=== PATIENT | male | born 1940 | race American Indian/Alaskan Native ===

== ENCOUNTER 2019-01-15 10:13 | Inpatient (IN) | payer MEDICARE ==
--- NOTE | 2019-01-15 11:20 | XRay Report ---
AP CHEST: HISTORY: Shortness of breath AP view of the chest demonstrates a normal mediastinal and cardiac contour with clear lungs and normal bony and soft tissue structures. IMPRESSION: No acute cardiopulmonary process identified.
[2019-01-15] MEDS ORDERED: ZOFRAN IV PRN (11:30)
[2019-01-15] MEDS ORDERED: TYLENOL PO PRN (11:30)
[2019-01-15 11:38] LABS: Basophils % (Auto) 0.7 % (0.0-1.8); Eosinophils # (Auto) 0.2 K/mm3 (0.0-0.4); Eosinophils % (Auto) 5.7 % (0.0-4.3); Hematocrit 43.4 % (35.5-45.6); Hemoglobin 14.9 gm/dl (11.8-15.2); Lymphocytes # (Auto) 1.5 K/mm3 (1.2-5.4); Lymphocytes % (Auto) 34.6 % (13.4-35.0); Mean Corpuscular HGB Conc 34 % (32-34); Mean Corpuscular Volume 90 fl (84-94); Monocytes # (Auto) 0.4 K/mm3 (0.0-0.8); Platelet Count 172 K/mm3 (140-440); Red Blood Count 4.82 M/mm3 (3.65-5.03); Red Cell Distribution Width 14.2 % (13.2-15.2)
[2019-01-15 11:47] LABS: INR 0.97 (0.87-1.13)
[2019-01-15 11:56] LABS: BUN/Creatinine Ratio 13; Blood Urea Nitrogen 17 mg/dL (9-20); Calcium 9.3 mg/dL (8.4-10.2); Hemolysis Index 14
--- NOTE | 2019-01-15 14:19 | History and Physical Report ---
Addendum entered and electronically signed by HENRY CROW MD 01/15/19 18:20: Episodes of recurrent near syncope ECG showing trifascicular block however no evidence of bradyarrhythmias on holter monitor NSVT with frequent PVCs on outpatient holter monitor (~9% of all beats) History of coronary artery disease s/p PCI Normal LVEF and normal MPI recently Discussed with primary flake drier Plan is to observe on and rule out bradyarrhythmias in setting of trifascicular block and consider cardiac cath on friday for NSVT and frequent PVCs Original Note: History of Present Illness Date of examination: 01/15/19 Date of admission: 01/15/19 10:45 History of present illness: Please refer to H&P obtained from the office. Medications and Allergies Allergies Allergy/AdvReac Type Severity Reaction Status Date / Time No Known Allergies Allergy Verified 06/23/14 06:54 Home Medications Medication Instructions Recorded Confirmed Last Taken Type Amlodipine Besylate 5 mg PO QDAY 06/23/14 06/23/14 06/22/14 History Aspirin EC [Halfprin EC] 81 mg PO QDAY 06/23/14 06/23/14 06/21/14 History Cholecalciferol Vit D3 [Vitamin D3] 1,000 unit PO QDAY 06/23/14 06/23/14 06/22/14 History Oxybutynin [Ditropan] 5 mg PO QDAY 06/23/14 06/23/14 06/22/14 History Simvastatin 20 mg PO HS 06/23/14 06/23/14 06/22/14 History Spironolactone [Aldactone] 50 mg PO BID 06/23/14 06/23/14 06/22/14 History Tadalafil [Cialis] 5 mg PO PRN PRN 06/23/14 06/23/14 05/23/14 History Active Meds: Active Medications Acetaminophen (Tylenol) 650 mg PO Q4H PRN PRN Reason: Pain MILD(1-3)/Fever >100.5/BARKER Enoxaparin Sodium (Lovenox) 30 mg SUB-Q QDAY REEMA Ondansetron HCl (Zofran) 4 mg IV Q8H PRN PRN Reason: Nausea And Vomiting Sodium Chloride (Sodium Chloride Flush Syringe 10 Ml) 10 ml IV PRN PRN PRN Reason: LINE FLUSH Physical Examination Vital Signs Temp Resp BP 97.6 F 18 124/98 01/15/19 11:29 01/15/19 11:29 01/15/19 11:29 General appearance: no acute distress HEENT: Positive: PERRL Cardiac: Positive: Reg Rate and Rhythm Lungs: Positive: Decreased Breath Sounds Neuro: Positive: Grossly Intact Results 01/15/19 11:14 01/15/19 11:14 Coagulation 01/15/19 Range/Units 11:14 PT 13.5 (12.2-14.9) Sec. INR 0.97 (0.87-1.13) CBC 01/15/19 Range/Units 11:14 WBC 4.3 L (4.5-11.0) K/mm3 RBC 4.82 (3.65-5.03) M/mm3 Hgb 14.9 (11.8-15.2) gm/dl Hct 43.4 (35.5-45.6) % Plt Count 172 (140-440) K/mm3 Lymph # 1.5 (1.2-5.4) K/mm3 [place] # 0.4 (0.0-0.8) K/mm3 Eos # 0.2 (0.0-0.4) K/mm3 Baso # 0.0 (0.0-0.1) K/mm3 Comprehensive Metabolic Panel 01/15/19 Range/Units 11:14 Sodium 139 (137-145) mmol/L Potassium 3.8 (3.6-5.0) mmol/L Chloride 101.2 (98-107) mmol/L Carbon Dioxide 28 (22-30) mmol/L BUN 17 (9-20) mg/dL Creatinine 1.3 (0.8-1.5) mg/dL Glucose 85 (75-100) mg/dL Calcium 9.3 (8.4-10.2) mg/dL Assessment and Plan Paroxysmal NSVT treadmill stress test 01/14 showed SVT which resolved spontaneously. However, nuclear was negative for ischemia. normal LVEF by recent echo at [facility]. no significant stenosis by recent carotid u/s. holter showed moderate PVCs with runs of nonsustained VT. ECG today is sinus rhythm with bifascicular block. hospitalized at [facility] 2-3 weeks ago with syncope. Hypertension Remote history of CAD Hx of Prostate CA Plan: Admit for observation. Telemetry monitoring, labs, CXR Beta blockers for suppression of paroxysmal SVT.
[2019-01-15] MEDS: LOPRESSOR PO SCH ×3 (17:11→23:33)
[2019-01-16] MEDS: LOPRESSOR PO SCH ×4 (05:55→23:31)
[2019-01-16 06:44] LABS: BUN/Creatinine Ratio 13; Blood Urea Nitrogen 16 mg/dL (9-20); Hemolysis Index 4
--- NOTE | 2019-01-16 09:18 | Progress Note ---
Assessment and Plan - Patient Problems (1) Abnormal stress test Current Visit: Yes Status: Acute Plan to address problem: Patient is awaiting cardiac catheterization scheduled for Friday morning. Subjective Date of service: 01/16/19 Interval history: Patient is comfortable, no chest pain, no shortness of breath, no cardiac complaints. Heart rate is 68, sinus rhythm, blood pressure 129/97. Objective Vital Signs Temp Pulse Resp BP Pulse Ox 01/16/19 08:38 68 20 129/97 100 01/16/19 08:37 98.2 F 01/16/19 08:23 20 01/16/19 04:50 98.3 F 71 18 142/108 98 01/15/19 23:39 98.3 F 69 16 131/97 97 01/15/19 23:33 80 01/15/19 20:42 22 01/15/19 19:52 97.7 F 73 16 123/87 98 01/15/19 16:26 97.9 F 18 142/100 01/15/19 11:29 97.6 F 18 124/98 01/15/19 10:58 81 - Physical Examination General: Appears Well, No Apparent Distress HEENT: Positive: PERRL Neck: Positive: neck supple Cardiac: Positive: Reg Rate and Rhythm Lungs: Positive: clear to auscultation Neuro: Positive: Grossly Intact Abdomen: Positive: Soft Skin: Positive: Clear Extremities: Absent: edema - Labs and Meds Coagulation 01/15/19 Range/Units 11:14 PT 13.5 (12.2-14.9) Sec. INR 0.97 (0.87-1.13) CBC 01/15/19 Range/Units 11:14 WBC 4.3 L (4.5-11.0) K/mm3 RBC 4.82 (3.65-5.03) M/mm3 Hgb 14.9 (11.8-15.2) gm/dl Hct 43.4 (35.5-45.6) % Plt Count 172 (140-440) K/mm3 Lymph # 1.5 (1.2-5.4) K/mm3 [place] # 0.4 (0.0-0.8) K/mm3 Eos # 0.2 (0.0-0.4) K/mm3 Baso # 0.0 (0.0-0.1) K/mm3 Comprehensive Metabolic Panel 01/15/19 01/16/19 Range/Units 11:14 05:39 Sodium 139 141 (137-145) mmol/L Potassium 3.8 3.4 L (3.6-5.0) mmol/L Chloride 101.2 103.2 (98-107) mmol/L Carbon Dioxide 28 26 (22-30) mmol/L BUN 17 16 (9-20) mg/dL Creatinine 1.3 1.2 (0.8-1.5) mg/dL Glucose 85 86 (75-100) mg/dL Calcium 9.3 9.0 (8.4-10.2) mg/dL
[2019-01-16] MEDS: DITROPAN PO SCH (09:39)
[2019-01-16] MEDS: NORVASC PO SCH (09:39)
[2019-01-16] MEDS: FLOMAX PO SCH (09:39)
[2019-01-16] MEDS: LOVENOX SUB-Q SCH (09:40)
[2019-01-16] MEDS: HALFPRIN EC PO SCH (09:40)
[2019-01-16] MEDS: LEXAPRO PO SCH (09:55)
[2019-01-16] MEDS ORDERED: LOVENOX SUB-Q SCH (10:00)
[2019-01-16] MEDS: SODIUM CHLORIDE FLUSH SYRINGE 10 ML IV PRN (21:15)
[2019-01-17] MEDS: LOPRESSOR PO SCH ×4 (06:00→23:41)
[2019-01-17 06:04] LABS: BUN/Creatinine Ratio 15; Blood Urea Nitrogen 20 mg/dL (9-20); Calcium 8.6 mg/dL (8.4-10.2); Hemolysis Index 9
[2019-01-17] MEDS: DITROPAN PO SCH (10:04)
[2019-01-17] MEDS: NORVASC PO SCH (10:04)
[2019-01-17] MEDS: LEXAPRO PO SCH (10:04)
[2019-01-17] MEDS: LOVENOX SUB-Q SCH (10:04)
[2019-01-17] MEDS: FLOMAX PO SCH (10:04)
[2019-01-17] MEDS: HALFPRIN EC PO SCH (10:04)
--- NOTE | 2019-01-17 10:23 | Progress Note ---
Assessment and Plan - Patient Problems (1) Abnormal stress test Current Visit: Yes Status: Acute Plan to address problem: Patient is awaiting cardiac catheterization scheduled for tomorrow morning. Subjective Date of service: 01/17/19 Interval history: Patient is comfortable, no acute distress, awaiting cardiac catheterization which is scheduled for tomorrow morning. Objective Vital Signs Temp Pulse Resp BP Pulse Ox 01/17/19 09:36 98.1 F 01/17/19 09:35 61 18 125/90 99 01/17/19 06:00 60 125/73 01/17/19 04:22 98.3 F 60 17 125/73 99 01/17/19 00:18 98.2 F 63 17 135/89 98 01/16/19 23:31 70 133/95 01/16/19 22:00 75 20 01/16/19 20:55 98.9 F 70 18 133/95 99 01/16/19 16:06 71 18 112/84 97 01/16/19 16:05 98.0 F 01/16/19 11:41 98.0 F 70 18 124/88 100 - Physical Examination General: Appears Well, No Apparent Distress HEENT: Positive: PERRL Neck: Positive: neck supple Cardiac: Positive: Reg Rate and Rhythm Lungs: Positive: clear to auscultation Neuro: Positive: Grossly Intact Abdomen: Positive: Soft Skin: Positive: Clear Extremities: Absent: edema - Labs and Meds Comprehensive Metabolic Panel 01/17/19 Range/Units 05:03 Sodium 138 (137-145) mmol/L Potassium 3.2 L (3.6-5.0) mmol/L Chloride 101.5 (98-107) mmol/L Carbon Dioxide 26 (22-30) mmol/L BUN 20 (9-20) mg/dL Creatinine 1.3 (0.8-1.5) mg/dL Glucose 91 (75-100) mg/dL Calcium 8.6 (8.4-10.2) mg/dL
[2019-01-17] MEDS: SODIUM CHLORIDE FLUSH SYRINGE 10 ML IV PRN (21:09)
[2019-01-18] MEDS: LOPRESSOR PO SCH ×2 (05:15→16:42)
[2019-01-18 05:40] LABS: Hematocrit 41.1 % (35.5-45.6); Hemoglobin 14.2 gm/dl (11.8-15.2); INR 1.04 (0.87-1.13); Mean Corpuscular HGB Conc 35 % (32-34); Mean Corpuscular Volume 90 fl (84-94); Platelet Count 156 K/mm3 (140-440); Red Blood Count 4.57 M/mm3 (3.65-5.03); Red Cell Distribution Width 13.8 % (13.2-15.2)
[2019-01-18 05:59] LABS: Calcium 8.8 mg/dL (8.4-10.2)
[2019-01-18] MEDS ORDERED: HALFPRIN EC PO ONE (07:49)
[2019-01-18] MEDS: HALFPRIN EC PO SCH ×2 (07:51→16:41)
[2019-01-18] MEDS ORDERED: NACL 0.9% 500 ML 500 ML IV SCH (08:00)
[2019-01-18] MEDS: XYLOCAINE 2% INFILTRATI ONE ×3 (10:15→10:43)
[2019-01-18] MEDS: SUBLIMAZE ONE ×2 (10:15→10:30)
[2019-01-18] MEDS: VERSED ONE ×2 (10:15→10:30)
[2019-01-18] MEDS: CALAN ONE ×2 (10:16→10:32)
[2019-01-18] MEDS: HEPARIN 10,000 UNITS/10 ML ONE ×2 (10:16→10:32)
[2019-01-18] MEDS: NACL 0.9% 500 ML 0 ML ONE ×2 (10:17→10:25)
[2019-01-18] MEDS: HEPARIN/NS 5000 UNIT/500ML(CATH LAB) 1,000 ML IR ONE ×2 (10:17→10:25)
[2019-01-18] MEDS: NITROGLYCERIN SYRINGE 3 ML ONE ×2 (10:18→10:32)
[2019-01-18] MEDS ORDERED: ATROPINE 0.1% (CARDIAC) ONE (10:24)
[2019-01-18] MEDS ORDERED: ADRENALIN ONE (10:27)
--- NOTE | 2019-01-18 11:18 | Cardiac Catherization Report ---
REASON FOR PROCEDURE: The patient is a 78-year-old man, who presented to the hospital following an abnormal stress test, recommended for cardiac catheterization. PROCEDURES: 1. Left heart catheterization. 2. Selective left and right coronary angiography. 3. Left ventricular catheterization and angiography. 4. Sedation time start 10:30, and end 10:54. DESCRIPTION OF PROCEDURE: The patient was prepped and draped in a sterile fashion after informed consent. An initial attempt at retrograde catheterization via the right radial artery was unsuccessful due to severe tortuosity in the neck and brachiocephalic artery. We then turned our attention to the right femoral artery. The right femoral artery was entered using Seldinger technique followed by placement of a 6-Sinhala sheath. A #3.5 left Karla was used for left coronary angiography, and a #4 right Karla was used for right coronary angiography. A pigtail catheter was used for left ventricular angiography. The catheters were removed, sheath removed, and hemostasis achieved using manual compression. The right radial sheath was also removed, hemostasis at that site obtained using a TR band. The patient was returned to the postprocedure unit in stable condition. There were no complications. FINDINGS: HEMODYNAMICS: Left ventricle end-diastolic pressure was 19, following coronary angiography. Ascending aortic pressure is 132/78. There was no significant pressure gradient on pullback across the aortic valve. CORONARY ANGIOGRAPHY: There were mild luminal irregularities of the left main coronary artery. The left anterior descending artery and its diagonal branches contained diffuse mild irregularities. A large bifurcating ramus intermedius artery contained a 30-40% stenosis in its mid segment before its bifurcation. The circumflex artery contained mild luminal irregularities. The right coronary artery was dominant and was free of significant disease. There was mild left ventricular systolic dysfunction, mild diffuse hypokinesis, ejection fraction was 40-45%. CONCLUSION: 1. Mild nonobstructive irregularities as noted above. 2. Mild left ventricular systolic dysfunction, ejection fraction 40-45%. RECOMMENDATION: Risk factor modification and medical therapy. JOB# [id number] CA/NTS
--- NOTE | 2019-01-18 11:20 | Discharge Summary ---
Providers - Providers Date of Admission: 01/15/19 10:45 Date of discharge: 01/18/19 Attending physician: SANTIAGO HUNTER Primary care physician: PRASHANTH LUNA Hospitalization Condition: Good Hospital course: Patient was admitted with episodes of recurrent near syncope. NSVT with frequent PVCs on outpatient holter monitor. On presentation, ECG showing trifascicular block however no evidence of bradyarrhythmias on optics manufacturing technician. Patient recently had a normal LVEF by echocardiogram and normal stress thallium test. Further cardiac evaluation with a cardiac catheterization, done today, reports nonobstructive mild luminal irregularities, left ventricular systolic function mildly impaired ejection fraction 40-45%. The patient is stable for cardiac discharge today with recommendations for an outpatient follow-up with his primary [employer] scm consultant Dr. Hunter and quill worker Dr. Ho. Disposition: TO HOME OR SELFCARE Core Measure Documentation - Palliative Care Palliative Care/ Comfort Measures: Not Applicable - Core Measures Any of the following diagnoses?: none Exam - Constitutional Vitals: Temp Pulse Resp BP Pulse Ox 98.7 F 61 17 135/97 99 01/18/19 04:49 01/18/19 05:15 01/18/19 04:49 01/18/19 05:15 01/18/19 04:49 General appearance: Present: no acute distress - EENT Eyes: Present: PERRL - Neck Neck: Present: normal ROM - Respiratory Respiratory effort: normal - Cardiovascular Rhythm: regular Heart Sounds: Present: S1 & S2 - Psychiatric Psychiatric: appropriate mood/affect Plan Activity: advance as tolerated Diet: low fat, low cholesterol, low salt Wound: keep clean and dry Follow up with: PRASHANTH LUNA MD [Primary Care Provider] - 7 Days SANTIAGO HUNTER MD [Staff Physician] - 7 Days Prescriptions: Metoprolol [Lopressor TAB] 25 mg PO BID #60 tablet
--- NOTE | 2019-01-18 11:32 | Event Note ---
Date: 01/18/19 Cardiac catheterization completed by the right femoral artery. Findings are nonobstructive mild luminal irregularities, left ventricular systolic function mildly impaired ejection fraction 40-45%. Recommendations: Risk factor modification and medical therapy. The patient is stable for cardiac discharge today. Outpatient event monitor for 2 weeks on discharge. Follow-up with primary conveyancer Dr. Foster, and fancy sewer Dr. Ho.
[2019-01-18] MEDS ORDERED: NACL 0.9% 1000 ML 1,000 ML IV SCH (12:00)
[2019-01-18] MEDS: NORVASC PO SCH (16:42)
[2019-01-18 16:55] VITALS: BP 139/94
== END 2019-01-18 17:42 | disposition home or self-care (01) | DRG 287 ==
LOC: UNDOADMIN 10:13 → 4A 10:13
PROVIDERS: ADMIT Internal Medicine Cardiovascular Disease; ATTEND Internal Medicine Cardiovascular Disease
PROC: 4A023N7 Measurement of Cardiac Sampling and Pressure, Left Heart, Percutaneous Approach (ICD-10-PCS; principal; 2019-01-18)
PROC: B2111ZZ Fluoroscopy of Multiple Coronary Arteries using Low Osmolar Contrast (ICD-10-PCS; 2019-01-18)
PROC: B2151ZZ Fluoroscopy of Left Heart using Low Osmolar Contrast (ICD-10-PCS; 2019-01-18)
DX: I47.2 Ventricular tachycardia (principal); R55 Syncope and collapse; I49.3 Ventricular premature depolarization; I45.3 Trifascicular block; I25.10 Atherosclerotic heart disease of native coronary artery without angina pectoris; I10 Essential (primary) hypertension; Z79.82 Long term (current) use of aspirin; Z79.899 Other long term (current) drug therapy; Z85.46 Personal history of malignant neoplasm of prostate
CPT/HCPCS: 36415; 71045; 80048; 82962; 83735; 84439; 84443; 85025; 85027; 85610; 93005; 93010; 93458; G0378; A9270-GY; C1769; C1894; J0171; J0461; J1644; J1650; J2250; J3010; J7040; Q9967

== ENCOUNTER 2020-01-12 11:38 | Outpatient (CLI) | payer MEDICARE ==
--- NOTE | 2020-01-12 12:19 | XRay Report ---
CHEST 2 VIEWS INDICATION: SP/OP/XR/COUGH. COMPARISON: 01/15/2019 FINDINGS: Support devices: None. Heart: Mild cardiac enlargement Lungs: No acute air space or interstitial disease. Pleura: No significant pleural effusion. No pneumothorax. Additional findings: None. IMPRESSION: 1. No acute findings. Signer Name: Azam Ivy MD Signed: 01/12/2020 12:14 PM Workstation Name: [id number]
== END 2020-01-12 11:39 | disposition home or self-care (01) ==
LOC: SPVIMAG 11:38
PROVIDERS: ATTEND Internal Medicine Hematology & Oncology
DX: I51.7 Cardiomegaly (principal)
CPT/HCPCS: 71046